=== PATIENT | male | born 1945 | race Caucasian/White ===

== ENCOUNTER 2018-06-13 13:06 | Day surgery (SDC) | payer MEDICARE, OTHER ==
[2018-06-05 13:30] VITALS: BMI 24.3
[~2018-06-13 13:06] MED LIST: ALPRAZolam 0.25 MG TAB PO PRN; ALPRAZolam 0.5 MG TAB PO PRN; ASPIRIN 325 MG TAB PO STA; ATORVASTATIN 80 MG TAB PO STA; NITROGLYCERIN SL TABS 0.4 MG TAB SUBLINGUAL PRN; SODIUM CHLORIDE 0.9% 1,000 ML in EMPTY BAG 1 BAG IV ONE
[2018-06-13 14:18] LABS: Basophils # (A) 0.1 k/uL (0-0.2); Basophils % (A) 1 %; Eosinophils # (A) 0.2 k/uL (0-0.7); Eosinophils % (A) 3 %; HCT 37.1 % (39.0-53.0); Lymphocytes # (A) 1.7 k/uL (1.0-4.8); Lymphocytes % (A) 22 %; MCH 28.6 pg (25.0-35.0); MCHC 32.4 g/dL (31.0-37.0); MCV 88.2 fL (80.0-100.0); Mean Platelet Volume 7.1; Monocytes # (A) 0.5 k/uL (0-1.0); Monocytes % (A) 7 %; Neutrophils # (A) 5.1 k/uL (1.3-7.7); Neutrophils % (A) 66 %; Platelet Count 308 k/uL (150-450); RDW 13.3 % (11.5-15.5); WBC 7.6 k/uL (3.8-10.6)
[2018-06-13] MEDS ORDERED: NICOTINE 14MG/24HR PATCH TRANSDERM STA (14:18)
[2018-06-13 14:33] LABS: Calcium 9.7 mg/dL (8.4-10.2); Potassium 4.1 mmol/L (3.5-5.1)
[2018-06-13] MEDS: ATENOLOL 50 MG TAB PO SCH (20:33)
[2018-06-13] MEDS: TAMSULOSIN 0.4 MG CAP.ER.24H PO SCH (21:08)
[2018-06-13] MEDS: CLOPIDOGREL 75 MG TAB PO SCH (21:08)
[2018-06-13] MEDS: amLODIPine 10 MG TAB PO SCH (21:08)
[2018-06-14] MEDS ORDERED: SODIUM CHLORIDE 0.9% 100 ML BAG ONE ×2 (08:00→11:50)
[2018-06-14] MEDS ORDERED: ADENOSINE 3 MG/ML 4 ML VIAL IVP ONE (08:00)
[2018-06-14] MEDS: PANTOPRAZOLE 40 MG TABLET PO SCH (08:07)
[2018-06-14] MEDS ORDERED: ASPIRIN 325 MG TAB PO ONE (08:15)
[2018-06-14] MEDS ORDERED: MIDAZOLAM 2 MG/2 ML VIAL ONE (11:14)
[2018-06-14] MEDS ORDERED: LIDOCAINE 1% INJ 10MG/ML (20 ML MDV) ONE (11:17)
[2018-06-14] MEDS ORDERED: BIVALIRUDIN BOLUS 250 MG/50 ML IV ONE (11:30)
[2018-06-14] MEDS ORDERED: SODIUM CHLORIDE 0.9% 50 ML MINI-BAG IV ONE (11:30)
[2018-06-14] MEDS ORDERED: NITROGLYCERIN 1000MCG/10ML SYRINGE ONE (11:40)
[2018-06-14] MEDS ORDERED: IOPAMIDOL-250 100ML BTL ONE (12:19)
[2018-06-14] MEDS ORDERED: IOPAMIDOL-370 150ML BTL ONE (12:19)
[2018-06-14] MEDS ORDERED: CLOPIDOGREL 75 MG TAB ONE (12:19)
[2018-06-14] MEDS ORDERED: IOPAMIDOL-250 50ML BTL ONE (12:19)
--- NOTE | 2018-06-14 12:51 | IR ---
Fluoroscopy HISTORY: Peripheral vascular occlusive disease 9.3 minutes fluoroscopy time supplied to the referring clinician. 844 intraoperative C-arm images do cument the procedure. See dictated report from cardiology.
--- NOTE | 2018-06-14 12:59 | PTCA ---
PERCUTANEOUSTRANS CORORONARY ANGIOGRAPHY DATE OF SERVICE: 06/14/2018 PERFORMING PHYSICIAN: Jaime Perez MD, Upholsterer Inside. PROCEDURE PERFORMED: 1. Selective right and left coronary angiogram. 2. Left heart catheterization. 3. Successful stenting of the proximal ramus intermedius coronary artery using 2.5 x 15 mm Xience MILLER with an excellent angiographic results and reduction of stenosis from 90% to 0%. 4. Fractional flow reserve, FFR of the right coronary artery. INDICATION: This is a 72-year-old gentleman with history of coronary artery disease and prior stenting of the right coronary artery as well as ramus intermedius, who was experiencing exertional dyspnea and underwent myocardial perfusion imaging stress test at [place] and that revealed reversible defect. Because of that, a heart catheterization was advised. APPROACH: Right common femoral artery. COMPLICATION: None. LEVEL OF SEDATION: Moderate with sedation length of 25 minutes. PROCEDURE DESCRIPTION: After obtaining an informed consent, the patient was brought to the cardiac dental laboratory supervisor. The right common femoral artery was cannulated using micropuncture technique, the micropuncture wire passed easily. COMPLICATION: None. LEVEL OF SEDATION: Moderate with sedation length of 25 minutes. PROCEDURE DESCRIPTION: After obtaining an informed consent, the patient was brought to the cardiac dental laboratory supervisor. The right common femoral artery was cannulated using micropuncture technique, the micropuncture wire passed easily, then I placed a 6-Bulgarian sheath 11 cm in the right common femoral artery. After that, I did selective right and left coronary angiogram using JR4 and JL4 catheters. Left heart catheterization was performed using 6-Bulgarian pigtail catheter. After that I did intervene on the ramus intermedius and also I did an FFR of the RCA. Please see a separate paragraph for that. SELECTIVE CORONARY ANGIOGRAM: 1. The right coronary artery is a large caliber vessel and it is a dominant vessel. The proximal RCA appeared to be angiographically normal. The mid RCA just before the stented segment has a lesion appeared to be in the range of 60%., most identified on the FISCHER view. The stent in the RCA in the midportion distal to that lesion has mild in-stent restenosis. The RCA distally appeared to be normal and bifurcates into PDA and PLV branches, both appeared to be angiographically normal. 2. The left main is angiographically normal. It bifurcates into left circumflex, ramus intermedius, and left anterior descending artery. 3. The left circumflex is a medium caliber vessel and is a nondominant vessel. The proximal left circumflex, mid left circumflex and distal circumflex appeared appeared to have mild disease only. 4. The ramus intermedius is a medium to large caliber vessel with critical disease in the midportion. 5. The LAD the proximal LAD appeared to be angiographically normal. The mid LAD is normal and gives rise into a medium-sized diagonal branch which appeared to be normal and the LAD distally appeared to be normal. HEMODYNAMICS: The left ventricular end-diastolic pressure was about 8 mmHg without significant gradient across the aortic valve. PCI OF THE RAMUS INTERMEDIUS: Anticoagulation was initiated using Angiomax. Subsequently, I took JL4 guide and the left main was engaged. I did wire the ramus using the run-through wire. After that, I did predilatation using 2.5 x 12 mm balloon before I deployed 2.5 x 15 mm Xience drug- eluting stent where the stent was positioned under fluoroscopy guidance and deployed under 14 atmospheres for 20 seconds with the following angiogram showing good angiographic results. The procedure was completed without any complication. FFR of the RCA after zeroing the Doppler wire and equalizing between the Doppler wire and the guiding catheter which was JR4 guiding catheter with an FFR per IV adenosine infusion and the FFR came in to be at 0.88. We decided to stop at that point. CONCLUSION: 1. Intermediate disease involving the mid right coronary artery. FFR was performed and came into be nonischemic at 0.88. 2. Critical disease involving the proximal ramus intermedius. 3. Successful stenting of the ramus intermedius using a 2.5 x 15 mm Xience MILLER with an excellent angiographic result. POSTPROCEDURE MANAGEMENT: 1. Dual anti-platelet therapy. 2. Risk factor modification. 3. Smoking cessation. 4. Follow up with the patient. MMODL / IJN: [id number] /
--- NOTE | 2018-06-14 13:05 | AN ---
ANGIOGRAPHY REPORT PERIPHERAL ANGIOGRAM DATE OF SERVICE: 06/14/2018 PERFORMING PHYSICIAN: Jaime Perez MD, plumbing drafter. PROCEDURE PERFORMED: 1. Abdominal aortogram. 2. Bilateral lower extremities runoff. INDICATION: This is a 72-year-old gentleman with history of peripheral arterial disease and prior peripheral intervention was performed long time ago with unknown details, who was experiencing bilateral lower extremity intermittent claudication, worse on the left side than the right side. He was brought today to undergo a heart catheterization for abnormal stress test and shortness of breath, so I did decide to pursue an abdominal aortogram and bilateral lower extremity runoff to follow the coronary procedure. APPROACH: Right common femoral artery. COMPLICATION: None. LEVEL OF SEDATION: Moderate with sedation length of 30 minutes. PROCEDURE DESCRIPTION: Please refer to access description prescribed at the diagnostic heart catheterization report which was performed earlier today. After heart catheterization was performed, I did advanced a 5-Hungarian pigtail catheter to the abdominal aorta where the pigtail catheter was initially placed at the level of the renal arteries then it was pulled into above the bifurcation of the aorta to right and left common iliac arteries. I did an abdominal aortogram and bilateral lower extremities runoff using digital subtraction. The procedure was completed without any complication. SELECTIVE PERIPHERAL ANGIOGRAM: 1. The abdominal aorta appeared to be calcified with mild disease only. 2. Common iliac arteries: The right and left common iliac arteries appear to have mild disease only. 3. External iliac arteries: The right external iliac artery appeared to have intermediate lesion. The left external iliac artery appeared to have mild disease only. There were stents seen both external iliac arteries. 4. Profunda: Both profunda are patent. 5. SFA: The right SFA has severe lesion in the midportion appeared to be in the range of 70% to 80% and the left SFA has a critical lesion in the midportion appeared to be in the range of 90%. 6. Popliteal: Both popliteal are angiographically normal. 7. Below the knee: There are 3 vessels runoff below the knee bilaterally. CONCLUSION: 1. Patent stents in bilateral external iliac artery. 2. Severe right SFA disease and critical left SFA disease. POSTPROCEDURE MANAGEMENT: DOG RACES MANAGER of the left then right SFA to be performed at two separate sessions. MMODL / IJN: [id number] /
--- NOTE | 2018-06-14 13:05 | LTR ---
DATE OF SERVICE: 06/14/2017 RE: Rito Hilliard Dear Reyna; Mr. Rito Hilliard underwent today a heart catheterization and lower extremities runoff. The heart catheterization revealed critical disease involving the ramus intermedius which I did stent today with good angiographic results and without any complication. The runoff of the lower extremities revealed severe bilateral femoral artery disease. I am going to perform an angioplasty of both femoral arteries in the next few weeks. I want to thank you for allowing us to participate in his care and please do not hesitate to call if you have any questions or concerns. Sincerely, Jaime Perez MD MMBEBETOL / LAURAN: [id number] /
[2018-06-14] MEDS ORDERED: ATORVASTATIN 10 MG TAB PO SCH (21:00)
[2018-06-14] MEDS: CLOPIDOGREL 75 MG TAB PO SCH (21:01)
[2018-06-14] MEDS: ATENOLOL 50 MG TAB PO SCH (21:01)
[2018-06-14] MEDS: TAMSULOSIN 0.4 MG CAP.ER.24H PO SCH (21:01)
[2018-06-14] MEDS: amLODIPine 10 MG TAB PO SCH (21:01)
[2018-06-14] MEDS ORDERED: HYDROmorphone 0.5 MG/0.5 ML SYRINGE IVP PRN (21:26)
[2018-06-14] MEDS ORDERED: HYDROcodone/APAP 5-325MG 1 EACH TAB PO PRN (21:26)
[2018-06-15] MEDS: PANTOPRAZOLE 40 MG TABLET PO SCH (06:23)
--- NOTE | 2018-06-15 08:06 | DS ---
DISCHARGE SUMMARY ADMISSION DATE: June 14, 2018 DISCHARGE DATE: June 15, 2018 BRIEF HISTORY: This is a 72-year-old gentleman who was admitted to the hospital yesterday and underwent heart catheterization and was found to have critical disease involving the ramus intermedius, which was stented with good angiographic results. He is going to be discharged home on dual anti-platelet therapy as well as a statin and I will follow up with the patient in a week in the office. The right groin which was the access site is soft and nontender and without any bruise. MMODL / IJN: [id number] /
[2018-06-15 08:22] VITALS: BP 123/72; PULSE 53; RESP 20; TEMP 98
== END 2018-06-15 09:32 | disposition home or self-care (01) ==
LOC: CATHCVL 13:06 → 1SOBS 15:04 → 3SCARD 06-14 11:33 → CATHCVL 06-15 09:32
PROVIDERS: ATTEND Internal Medicine Interventional Cardiology
DX: I25.10 Atherosclerotic heart disease of native coronary artery without angina pectoris (principal); T82.855A Stenosis of coronary artery stent, initial encounter; I70.0 Atherosclerosis of aorta; I10 Essential (primary) hypertension; F17.200 Nicotine dependence, unspecified, uncomplicated; E78.5 Hyperlipidemia, unspecified; Z79.02 Long term (current) use of antithrombotics/antiplatelets; Z79.82 Long term (current) use of aspirin; Z79.899 Other long term (current) drug therapy
CPT/HCPCS: 93571; 93458; 75625; 75716; 85347; 80048; 85025; C9600; C1887 ×2; C1725; C1769 ×3; C1894; C1874; S4990; J2250; J2001; Q9966 ×2; Q9967

== ENCOUNTER 2018-08-23 09:57 | Inpatient (IN) | payer MEDICARE, OTHER ==
[~2018-08-23 09:57] MED LIST changes: -ALPRAZolam 0.25 MG TAB PO PRN; -ALPRAZolam 0.5 MG TAB PO PRN; -ASPIRIN 325 MG TAB PO STA; -ATORVASTATIN 80 MG TAB PO STA; -NITROGLYCERIN SL TABS 0.4 MG TAB SUBLINGUAL PRN; +SODIUM CHLORIDE 0.9% 1,000 ML IV ONE; -SODIUM CHLORIDE 0.9% 1,000 ML in EMPTY BAG 1 BAG IV ONE
[2018-08-23] MEDS ORDERED: MIDAZOLAM (PF) 2 MG/2 ML VIAL IV ONE (13:36)
[2018-08-23] MEDS ORDERED: LIDOCAINE 1% INJ 10MG/ML (20 ML MDV) SQ ONE (13:37)
[2018-08-23] MEDS: fentaNYL (PF) 50 MCG/ML 2 ML AMP IV ONE ×2 (13:44→14:06)
[2018-08-23] MEDS ORDERED: niCARdipine Syringe (1,000 mcg/10 mL) INTRAARTER ONE (14:23)
[2018-08-23] MEDS ORDERED: IOPAMIDOL-250 100ML BTL INTRAARTER ONE (14:53)
[2018-08-23] MEDS ORDERED: CLOPIDOGREL 75 MG TAB PO ONE (15:04)
[2018-08-23] MEDS ORDERED: IOPAMIDOL-250 50ML BTL INTRAARTER ONE (15:04)
[2018-08-23] MEDS ORDERED: SODIUM CHLORIDE 0.9% 1,000 ML IV SCH (15:15)
[2018-08-23] MEDS: PANTOPRAZOLE 40 MG TABLET PO SCH (17:51)
[2018-08-23 18:19] VITALS: BMI 25.1
[2018-08-23] MEDS ORDERED: ATROPINE SULFATE 0.1 MG/ML 10ML SYRINGE IV STA (18:47)
[2018-08-23] MEDS ORDERED: HYDROmorphone 1 MG/ML 1 ML SYRINGE IVP STA ×2 (18:59→19:01)
[2018-08-23 19:08] LABS: Basophils % (A) 0 %; Eosinophils # (A) 0.3 k/uL (0-0.7); Eosinophils % (A) 5 %; HCT 28.1 % (39.0-53.0); HGB 9.1 gm/dL (13.0-17.5); Lymphocytes # (A) 1.6 k/uL (1.0-4.8); Lymphocytes % (A) 25 %; MCH 28.4 pg (25.0-35.0); MCHC 32.4 g/dL (31.0-37.0); MCV 87.5 fL (80.0-100.0); Mean Platelet Volume 7.3; Monocytes # (A) 0.3 k/uL (0-1.0); Monocytes % (A) 5 %; Neutrophils % (A) 62 %; Platelet Count 360 k/uL (150-450); RBC 3.21 m/uL (4.30-5.90); RDW 13.5 % (11.5-15.5); WBC 6.4 k/uL (3.8-10.6)
[2018-08-23] MEDS ORDERED: HYDROmorphone 1 MG/ML 1 ML SYRINGE IVP PRN (19:50)
--- NOTE | 2018-08-23 20:22 | CT ---
EXAMINATION TYPE: CT abdomen pelvis wo con DATE OF EXAM: 08/23/2018 COMPARISON: None HISTORY: Retroperitoneal bleed, post catheterization. CT DLP: 485.6 mGycm Automated exposure control for dose reduction was used. TECHNIQUE: Helical acquisition of images was performed from the lung bases through the pelvis. FINDINGS: Given the limitations of noncontrast CT the following observations are made. LUNG BASES: No acute findings. Coronary calcifications noted. LIVER/GB: No acute process. However, 2 cm low-attenuation focus is noted within the posterior segment right hepatic lobe, caudal to the hillary hepatis. This likely represents simple hepatic cysts, but ca n be proven with targeted ultrasound or with MRI. PANCREAS: No significant abnormality is seen. SPLEEN: No significant abnormality is seen. ADRENALS: No significant abnormality is seen. KIDNEYS: No significant abnormality is seen. PERITONEAL CAVITY: No pneumoperitoneum. Minimal fluid in the dependent midline pelvis. RETROPERITONEAL ADENOPATHY: None visualized REPRODUCTIVE ORGANS: No significant abnormality is seen URINARY BLADDER: No significant abnormality is seen. PELVIC ADENOPATHY: None visualized. OSSEOUS STRUCTURES: No significant abnormality is seen. BOWEL: Stomach is distended. No other findings. OTHER: There is a 23 cm CC x 13 cm AP x 13 cm transverse right hemipelvic extraperitoneal hematoma. I t is mildly higher than musculature in its CT attenuation and is prominently ill-defined as it dissec ts through the fascial planes from the right paravesical space in the pelvis up into the right infrac onal and right posterior pararenal space. The hematoma extends to the midline at the level of the sac ral promontory. IMPRESSION: RIGHT PELVIC/ABDOMINAL EXTRAPERITONEAL HEMATOMA.
[2018-08-23] MEDS ORDERED: LORazepam 2 MG/ML INJ IV PRN ×3 (20:35)
[2018-08-23] MEDS ORDERED: ALPRAZolam 0.5 MG TAB PO PRN (20:36)
[2018-08-23] MEDS ORDERED: amLODIPine 10 MG TAB PO SCH (21:00)
[2018-08-23] MEDS ORDERED: ATENOLOL 50 MG TAB PO SCH (21:00)
[2018-08-23 21:29] LABS: Basophils % (A) 0 %; Eosinophils # (A) 0.2 k/uL (0-0.7); Eosinophils % (A) 3 %; HCT 29.6 % (39.0-53.0); HGB 9.8 gm/dL (13.0-17.5); Lymphocytes % (A) 12 %; MCH 29.4 pg (25.0-35.0); MCV 88.8 fL (80.0-100.0); Monocytes # (A) 0.4 k/uL (0-1.0); Monocytes % (A) 4 %; Neutrophils # (A) 6.7 k/uL (1.3-7.7); Neutrophils % (A) 80 %; Platelet Count 355 k/uL (150-450); RBC 3.33 m/uL (4.30-5.90); RDW 13.4 % (11.5-15.5); WBC 8.4 k/uL (3.8-10.6)
[2018-08-23 22:29] LABS: Glucose,Whole Blood 134 mg/dL (75-99)
[2018-08-23 22:38] LABS: Basophils % (A) 0 %; Eosinophils # (A) 0.1 k/uL (0-0.7); Eosinophils % (A) 2 %; HCT 29.7 % (39.0-53.0); HGB 9.6 gm/dL (13.0-17.5); Lymphocytes # (A) 1.1 k/uL (1.0-4.8); Lymphocytes % (A) 12 %; MCH 28.9 pg (25.0-35.0); MCHC 32.2 g/dL (31.0-37.0); MCV 89.6 fL (80.0-100.0); Mean Platelet Volume 6.8; Monocytes # (A) 0.4 k/uL (0-1.0); Monocytes % (A) 4 %; Neutrophils % (A) 80 %; Platelet Count 367 k/uL (150-450); RBC 3.32 m/uL (4.30-5.90); RDW 13.5 % (11.5-15.5); WBC 8.8 k/uL (3.8-10.6)
[2018-08-23 22:48] LABS: Calcium 8.7 mg/dL (8.4-10.2); Magnesium 1.6 mg/dL (1.6-2.3); Potassium 4.1 mmol/L (3.5-5.1)
[2018-08-23 22:50] LABS: INR 0.9 (<1.2); Prothrombin Time 10.2 sec (9.0-12.0)
--- NOTE | 2018-08-23 22:52 | OP ---
OPERATIVE REPORT DATE OF SERVICE: 08/23/2018 PERFORMING PHYSICIAN: Jaime Perez MD, rip and groove machine operator. PROCEDURES PERFORMED: 1. Non-selective left [id number] angiogram. 2. Selective left SFA angiogram. 3. Intravascular ultrasound (IVUS) of the left SFA. 4. Atherectomy of the left SFA using the orbital atherectomy device from [facility]. 5. Stenting of the left SFA using 6 x 140 Zilver PTX with an excellent angiographic result. 6. Gradient measurement across the left external iliac artery. 7. Successful stenting of the left external iliac artery using Zilver PTX 8 x 18 mm with an excellent angiographic result. 8. Successful stenting of the left common iliac artery using 8 x 29 mm balloon expandable stent with an excellent angiographic result. INDICATION: This is a 72-year-old gentleman who was experiencing bilateral lower extremity intermittent claudication and underwent a peripheral angiogram that revealed critical disease involving bilateral SFA with intermediate to severe disease involving the left external iliac artery in a previously stented segment. He was brought today to undergo peripheral intervention. APPROACH: Right common femoral artery. COMPLICATIONS: None. LEVEL OF SEDATION: Moderate 104 minutes. PROCEDURE DESCRIPTION: After obtaining informed consent, the patient was brought to the cardiac cardiac catheterization technician. I did access the right common femoral artery under ultrasound guidance using micropuncture technique, and the micropuncture wire passed easily. Then I placed an 11 cm 6-Pashto sheath in the right common femoral artery. At that point I did select the left SFA using an 0.035 [place] Advantage wire with the backup support of a 5-Pashto RIM catheter. Subsequently I did exchange my 11 cm sheath for a 55 cm 6-Pashto Raabe sheath using the 0.035 [place] Advantage wire. The tip of the sheath was positioned in the left common femoral artery. After that I did flush the sheath. I did anticoagulation using heparin; the patient was given 10,000 units of heparin at the beginning of the procedure with continuous ACT monitoring throughout the procedure. Then I did cross the lesion in the left SFA using 0.[address] wire. I did intravascular ultrasound of the of the left SFA, which revealed the diameter of the artery about 6 to 6.5 mm. Then I did exchange my 0.[address] wire for an 0.014 ViperWire using 0.035 CXI catheter, preparing for orbital atherectomy. I did perform orbital atherectomy of the left SFA using the orbital atherectomy device from [facility] under low, medium and high speeds and using a 1.5 mm solid roxi. I did after that balloon angioplasty using a 4 mm balloon, inflated under fluoroscopic guidance under its nominal pressure with the following angiogram showing dissection that seems to be flow- limiting, and because of that I decided to stent the left SFA. I did deploy a 6 x 140 mm Zilver PTX in the mid left SFA where the stent was positioned under fluoroscopic guidance and deployed under fluoroscopic guidance. I post-dilated the stent using 6 mm balloon with the following angiogram showing excellent angiographic results. Subsequently I did a gradient measurement across the left external iliac artery just above the inguinal ligament, and that gradient was about 60 mmHg. Because of that, I decided to stent that segment. I did balloon the segment using 6 mm balloon before I deployed 8 x 80 mm Zilver PTX drug-coated stent where the stent again was positioned under fluoroscopic guidance and deployed under fluoroscopic guidance. I post-dilated the stent using 8 mm balloon with the following angiogram showing dissection at the proximal edge of the stent, which I decided to cover using 8 mm balloon expandable stent. I did deploy an 8 x 27 mm balloon expandable stent where the stent was positioned under fluoroscopic guidance and deployed under its nominal pressure with the following angiogram showing excellent angiographic results. No dissection left. The procedure was completed without any complication. After that I did exchange my 55 cm sheath for an 11 cm sheath using 0.035 [place] Advantage wire. By the end, I did selective right common femoral artery angiogram. The procedure was completed without any complication. POST-PROCEDURE MANAGEMENT: 1. Dual anti-platelet therapy. 2. Risk factor modifications. 3. SOLUTIONS CONSULTANT of the right SFA to be done at separate . MMODL / IJN: [id number] /
--- NOTE | 2018-08-23 23:31 | XR ---
EXAM: XR Chest, 1 View CLINICAL HISTORY: ITS.REASON XR Reason: NG tube TECHNIQUE: Frontal view of the chest. COMPARISON: None. FINDINGS: Lungs: Hypoinflated lungs with bibasilar opacities which may represent atelectasis. Pleural space: Unremarkable. No pneumothorax. Heart: Unremarkable. No cardiomegaly. Mediastinum: Unremarkable. Bones/joints: Unremarkable. Tubes, lines and devices: Enteric tube is coiled in the left upper quadrant, likely within the stomach. IMPRESSION: Enteric tube is coiled in the left upper quadrant, likely within the stomach.
[2018-08-23] MEDS: TAMSULOSIN 0.4 MG CAP.ER.24H PO SCH (23:52)
[2018-08-23] MEDS: CLOPIDOGREL 75 MG TAB PO SCH (23:52)
[2018-08-23] MEDS: ATORVASTATIN 10 MG TAB PO SCH (23:52)
[2018-08-24 01:25] LABS: Basophils % (A) 0 %; Eosinophils # (A) 0.1 k/uL (0-0.7); Eosinophils % (A) 1 %; HCT 29.4 % (39.0-53.0); HGB 9.7 gm/dL (13.0-17.5); Lymphocytes # (A) 0.8 k/uL (1.0-4.8); Lymphocytes % (A) 9 %; MCH 28.9 pg (25.0-35.0); MCV 87.5 fL (80.0-100.0); Monocytes # (A) 0.4 k/uL (0-1.0); Monocytes % (A) 5 %; Neutrophils # (A) 7.8 k/uL (1.3-7.7); Neutrophils % (A) 84 %; Platelet Count 355 k/uL (150-450); RBC 3.36 m/uL (4.30-5.90); RDW 13.5 % (11.5-15.5); WBC 9.3 k/uL (3.8-10.6)
[2018-08-24] MEDS: PANTOPRAZOLE 40 MG TABLET PO SCH (06:20)
--- NOTE | 2018-08-24 07:59 | IR ---
EXAMINATION TYPE: IR water vessel captain femoral popliteal DATE OF EXAM: 08/23/2018 CLINICAL HISTORY: Peripheral vascular disease. TECHNIQUE: Fluoroscopy. COMPARISON: None. FINDINGS: Fluoroscopic guidance was provided during abdominal angiogram with lower extremity runoff procedure performed by Dr. Perez. A total of 21.9 minutes of fluoroscopic time was utilized during th e procedure and multiple cine runs are acquired. Please refer to procedure note for further details a s I was not present nor performed procedure. IMPRESSION: As Above.
[2018-08-24 08:21] LABS: African American GFR (CKD) >90 (>60 ml/min/1.73 sqM); Anion Gap 6 mmol/L; Blood Urea Nitrogen 20 mg/dL (9-20); Carbon Dioxide 25 mmol/L (22-30); Chloride 110 mmol/L (98-107); Glucose 107 mg/dL (74-99); Potassium 4.3 mmol/L (3.5-5.1); Sodium 141 mmol/L (137-145)
[2018-08-24 08:34] LABS: Basophils % (A) 0 %; Eosinophils # (A) 0.1 k/uL (0-0.7); Eosinophils % (A) 1 %; HCT 27.3 % (39.0-53.0); Lymphocytes # (A) 0.7 k/uL (1.0-4.8); Lymphocytes % (A) 9 %; MCH 28.8 pg (25.0-35.0); MCHC 32.9 g/dL (31.0-37.0); MCV 87.5 fL (80.0-100.0); Mean Platelet Volume 7.4; Monocytes # (A) 0.5 k/uL (0-1.0); Monocytes % (A) 6 %; Neutrophils # (A) 6.3 k/uL (1.3-7.7); Neutrophils % (A) 82 %; Platelet Count 342 k/uL (150-450); RBC 3.13 m/uL (4.30-5.90); WBC 7.7 k/uL (3.8-10.6)
[2018-08-24] MEDS: ASPIRIN 81 MG PO SCH (09:11)
[2018-08-24] MEDS: PANTOPRAZOLE 40 MG/10 ML VIAL IVP SCH (09:11)
[2018-08-24] MEDS ORDERED: MENTHOL (NICE) LOZENGE MUCOUS MEM PRN (09:11)
--- NOTE | 2018-08-24 09:23 | P.PN ---
Progress Note - Text Progress Note Date: 08/24/18 This is a pleasant 72-year-old gentleman was admitted to the hospital yesterday and underwent successful atherectomy and balloon angioplasty and stenting of the left superficial femoral artery as well as successful balloon angioplasty and stenting of the left external iliac artery and left common iliac artery. He was experiencing bilateral lower extremities intermittent claudication and he underwent a peripheral angiogram a few weeks ago and that revealed critical disease involving the SFA bilaterally as well as vertical disease involving the left external iliac artery which was in-stent restenosis. The procedure yesterday was uneventful and it was with good angiographic results and without any complication during the procedure. After the procedure, the patient was experiencing abdominal discomfort and tenderness in the right lower quadrant of the abdomen. The sheath at that point was pulled when the ACT was below 175. I did perform a computed tomography scan of the abdomen and pelvis and that revealed what it seems to be abdominal wall hematoma with possible retroperitoneal hematoma. The patient was hemodynamically stable so far. Because of that I decided not to bring the patient down to the Public Opinion Survey Taker and perform an angiogram and possible covered stent. The hemoglobin dropped from 12 in June 20 yesterday. We decided to treat the patient conservatively and medically. On follow-up with him today, he continues to be hemodynamically stable. The hemoglobin continues to be around 9. He did have some coughing blood yesterday and I placed an NG tube on him he is not experiencing that today. Not so much secretions this coming from the NG tube. Because of.I am going to put it out. The abdomen is definitely softer and less tender compare to yesterday. As a mentioned earlier the hemoglobin continues to be around 9. I am going to DC the Norvasc and decrease the dose of atenolol at this point. Continue holding dual antiplatelet therapy for 1 more day. Continue monitor the hemoglobin. And continue following up with the patient for the next 24 hours.
[2018-08-24 19:17] LABS: Basophils % (A) 0 %; Eosinophils # (A) 0.2 k/uL (0-0.7); Eosinophils % (A) 2 %; HGB 8.5 gm/dL (13.0-17.5); Lymphocytes # (A) 1.1 k/uL (1.0-4.8); Lymphocytes % (A) 12 %; MCH 28.9 pg (25.0-35.0); MCHC 32.8 g/dL (31.0-37.0); MCV 88.3 fL (80.0-100.0); Mean Platelet Volume 7.5; Monocytes # (A) 0.5 k/uL (0-1.0); Monocytes % (A) 5 %; Neutrophils # (A) 7.4 k/uL (1.3-7.7); Neutrophils % (A) 80 %; Platelet Count 340 k/uL (150-450); RBC 2.95 m/uL (4.30-5.90); RDW 14.3 % (11.5-15.5); WBC 9.3 k/uL (3.8-10.6)
[2018-08-24] MEDS: ATORVASTATIN 10 MG TAB PO SCH (20:38)
[2018-08-24] MEDS: CLOPIDOGREL 75 MG TAB PO SCH (20:38)
[2018-08-24] MEDS: TAMSULOSIN 0.4 MG CAP.ER.24H PO SCH (20:38)
[2018-08-24] MEDS ORDERED: ATENOLOL 25 MG TAB PO SCH (21:00)
[2018-08-25 07:26] LABS: Basophils % (A) 0 %; Eosinophils # (A) 0.3 k/uL (0-0.7); Eosinophils % (A) 4 %; HCT 25.1 % (39.0-53.0); HGB 8.1 gm/dL (13.0-17.5); Lymphocytes % (A) 13 %; MCH 28.9 pg (25.0-35.0); MCHC 32.3 g/dL (31.0-37.0); MCV 89.3 fL (80.0-100.0); Monocytes # (A) 0.5 k/uL (0-1.0); Monocytes % (A) 7 %; Neutrophils # (A) 5.4 k/uL (1.3-7.7); Neutrophils % (A) 74 %; Platelet Count 349 k/uL (150-450); RBC 2.81 m/uL (4.30-5.90); RDW 13.6 % (11.5-15.5); WBC 7.3 k/uL (3.8-10.6)
[2018-08-25 07:46] LABS: Calcium 9.1 mg/dL (8.4-10.2)
[2018-08-25] MEDS: PANTOPRAZOLE 40 MG/10 ML VIAL IVP SCH (07:54)
[2018-08-25] MEDS: ASPIRIN 81 MG PO SCH (07:54)
[2018-08-25 08:57] VITALS: PULSE 66; RESP 18; TEMP 98.7
[2018-08-25 11:33] VITALS: BP 137/59
[2018-08-25 11:34] LABS: HCT 24.7 % (39.0-53.0); HGB 8.1 gm/dL (13.0-17.5); MCH 29.1 pg (25.0-35.0); MCHC 32.6 g/dL (31.0-37.0); MCV 89.1 fL (80.0-100.0); Mean Platelet Volume 7.2; Platelet Count 316 k/uL (150-450); RBC 2.77 m/uL (4.30-5.90); RDW 14.5 % (11.5-15.5); WBC 8.8 k/uL (3.8-10.6)
--- NOTE | 2018-08-25 12:24 | P.PN ---
Progress Note - Text Progress Note Date: 08/25/18 This is a pleasant 72-year-old gentleman who was admitted to the hospital and underwent left SFA angioplasty along with left iliac angioplasty from right groin approach. The procedure was complicated by abdominal wall hematoma and also retroperitoneal bleeding. The retroperitoneal [place] at itself. The hemoglobin dropped with the lowest number of 8.1. On follow-up with him today, he is asymptomatic. He has been up and around walking. Denies any chest pain or chest discomfort or shortness of breath. The right groin is soft and nontender and without any bruises. The patient is going to discharge home and dual antiplatelet therapy and I'll follow-up with him in a week.
== END 2018-08-25 13:16 | disposition home or self-care (01) | DRG 908 ==
LOC: CATHCVL 09:57 → 3SCARD 15:02 → CATHCVL 08-25 08:14
PROVIDERS: ADMIT Internal Medicine Interventional Cardiology; ATTEND Internal Medicine Interventional Cardiology
PROC: 047L34Z Dilation of Left Femoral Artery with Drug-eluting Intraluminal Device, Percutaneous Approach (ICD-10-PCS; principal; 2018-08-23 13:08)
PROC: 04CL3ZZ Extirpation of Matter from Left Femoral Artery, Percutaneous Approach (ICD-10-PCS; principal; 2018-08-23 13:08)
PROC: B44GZZ3 Ultrasonography of Left Lower Extremity Arteries, Intravascular (ICD-10-PCS; principal; 2018-08-23 13:08)
PROC: 047D34Z Dilation of Left Common Iliac Artery with Drug-eluting Intraluminal Device, Percutaneous Approach (ICD-10-PCS; principal; 2018-08-23 13:08)
PROC: 047J34Z Dilation of Left External Iliac Artery with Drug-eluting Intraluminal Device, Percutaneous Approach (ICD-10-PCS; principal; 2018-08-23 13:08)
PROC: B41G1ZZ Fluoroscopy of Left Lower Extremity Arteries using Low Osmolar Contrast (ICD-10-PCS; principal; 2018-08-23 13:08)
DX: L76.22 Postprocedural hemorrhage of skin and subcutaneous tissue following other procedure (principal); T82.856A Stenosis of peripheral vascular stent, initial encounter; Y83.8 Other surgical procedures as the cause of abnormal reaction of the patient, or of later complication, without mention of misadventure at the time of the procedure; I70.213 Atherosclerosis of native arteries of extremities with intermittent claudication, bilateral legs; I25.10 Atherosclerotic heart disease of native coronary artery without angina pectoris; I10 Essential (primary) hypertension; E78.5 Hyperlipidemia, unspecified; Z82.49 Family history of ischemic heart disease and other diseases of the circulatory system; Z87.891 Personal history of nicotine dependence; Z79.01 Long term (current) use of anticoagulants; Z79.82 Long term (current) use of aspirin; Z79.899 Other long term (current) drug therapy; Z95.5 Presence of coronary angioplasty implant and graft; Z71.6 Tobacco abuse counseling; S30.1XXA Contusion of abdominal wall, initial encounter
CPT/HCPCS: 37221; 37223; 37227; 37252; 50433; 71045; 74176; 80048; 83735; 85025; 85027; 85610